=== PATIENT | male | born 1940 | race Hispanic/Latino ===

== ENCOUNTER → 2019-09-30 | Outpatient (CLI) | payer MEDICARE ==
--- NOTE | 2019-09-30 16:23 | Diagnostic Imaging Report ---
EXAM: US ABDOMEN COMPLETE DATE: 09/30/2019 3:31 PM INDICATION: Abdominal pain COMPARISON: None FINDINGS: The pancreas partially obscured by overlying bowel gas. The visualized portion appears unremarkable. The liver is normal in size measuring 16.9 cm in length. No focal hepatic abnormality is identified. The main portal vein is patent with antegrade flow and diameter of 1.0 cm, within normal limits. A shadowing stone is identified within the neck of the gallbladder. Additionally, there is layering sludge noted within the gallbladder. Subcentimeter echogenic foci noted along the gallbladder wall with comet tail artifact. There is no evidence for gallbladder wall thickening or pericholecystic fluid. There is no intra or extra hepatic biliary ductal dilatation. The common bile duct measures 4 mm. Sonographic Cervantes's sign is negative. The kidneys are normal in size measuring 13.3 cm in length on the right and 12.3 cm in length on the left. Cortical thickness and echogenicity are within normal limits. There is no solid renal mass, hydronephrosis, or shadowing calculi. The visual as portions of the IVC and aorta are within normal limits. There is no ascites visualized. IMPRESSION: Cholelithiasis without sonographic evidence for acute cholecystitis. 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 Signed by: Dr. Ho Banda MD on 09/30/2019 4:20 PM
== END ==
LOC: US 15:21
PROVIDERS: ATTEND Internal Medicine
DX: R10.9 Unspecified abdominal pain (principal)
CPT/HCPCS: 76700